=== PATIENT | male | born 1960 | race Caucasian/White ===

== ENCOUNTER 2018-01-19 11:18 | Emergency (ER) | payer BC ==
[~2018-01-19] VITALS: Ht 188 cm; Wt 114.4 kg
--- OUTSIDE RECORDS SUMMARY | ~2018-01-19 | XMS | Clinical Summary ---
Demographics + + + | Address | [address] | | | [place] [address] | + + + | Home Phone | | + + + | Preferred Language | Unknown | + + + | Marital Status | | + + + | Mandaeism Affiliation | Unknown | + + + | Race | White | + + + | Ethnic Group | Not or | + + + Author + + + | Author | [facility] | + + + | Organization | [facility] | + + + | Address | Unknown | + + + | Phone | Unavailable | + + + Support + + +---------+ + | Name | Relationship | Address | Phone | + + +---------+ + | THERESA ADAIR | ECON | Unknown | | + + +---------+ + Care Team Providers + +------+ + | Care Bale Breaker Operator Name | Role | Phone | + +------+ + PP | Unavailable | + +------+ + Source Comments DUANE is fully live on both [facility] and [facility]Patient.[facility] Allergies No Known Allergies Current Medications + + +-------+---------+------+------+-------+ | Prescription | Sig. | Disp. | Refills | Star | End | Statu | | | | | | t | Date | s | | | | | | Date | | | + + +-------+---------+------+------+-------+ | MULTI-VITAMIN OR | None Entered | | | | | Activ | | | | | | | | e | + + +-------+---------+------+------+-------+ | VITAMIN C OR | None Entered | | | | | Activ | | | | | | | | e | + + +-------+---------+------+------+-------+ | cephALEXin | Take 4 capsules by | 4 | 0 | 09/08 | | Activ | | (KEFLEX) 500 mg Oral | mouth now | | | 05/27 | | e | | Capsule | | | | 08 | | | + + +-------+---------+------+------+-------+ Active Problems + + + | Problem | Noted Date | + + + | Malignant neoplasm of skin | | + + + + + | Overview: ICD10 | + + Social History + +-------+ +--------+------+ | Tobacco Use | Types | Packs/Day | Years | Date | | | | | Used | | + +-------+ +--------+------+ | Never Smoker | | | | | + +-------+ +--------+------+ + + + | Sex Assigned at | Date Recorded | | | | + + + | Not on file | | + + + Last Filed Vital Signs + +---------+ + | Vital Sign | Reading | Time Taken | + +---------+ + | Blood Pressure | 120/80 | 09/24/2008 8:01 AM PST | + +---------+ + | Pulse | 72 | 09/24/2008 8:01 AM PST | + +---------+ + | Temperature | - | - | + +---------+ + | Respiratory Rate | 16 | 09/24/2008 8:01 AM PST | + +---------+ + | Oxygen Saturation | - | - | + +---------+ + | Inhaled Oxygen | - | - | | Concentration | | | + +---------+ + | Weight | - | - | + +---------+ + | Height | - | - | + +---------+ + | Body Mass Index | - | - | + +---------+ + Plan of Treatment + + + + + | Health Maintenance | Due Date | Last Done | Comments | + + + + + | INFLUENZA VACCINE | | | | | (FLU SHOT) | 7 | | | + + + + + Results Not on filefrom Last 3 Months"
--- OUTSIDE RECORDS SUMMARY | ~2018-01-19 | XMS | Clinical Summary ---
Demographics + + + | Address | [address] | | | [place] [address] | + + + | Home Phone | | + + + | Preferred Language | Unknown | + + + | Marital Status | | + + + | Advent Affiliation | Unknown | + + + [...] Team Providers + +------+ + | Care Pressure Controller Name | Role | Phone | + +------+ + PP | Unavailable | + +------+ + Source Comments DUANE is fully live on both [facility] and [facility] InPatient.[facility] Allergies No Known Allergies Current [...]
[~2018-01-19 11:18] MED LIST: AMLODIPINE BESYL5 MG PO; ASPIRIN81 MG PO; ATORVASTATIN CA10 MG PO; HYDROCHLOROTHIA25 MG PO; LOSARTAN POTAS100 MG PO; NITROSTAT0.4 MG SL; TOPROL XL50 MG PO
[2018-01-19] MEDS ORDERED: DICLOFENAC SODI75 MG PO (11:26)
[2018-01-19] MEDS ORDERED: METOPROLOL SUC100 MG PO (11:27)
[2018-01-19] MEDS ORDERED: HYDROCHLOROTHIA25 MG PO (11:27)
[2018-01-19] MEDS ORDERED: GLUCOSAMINE HC500 MG PO (11:28)
[2018-01-19] MEDS ORDERED: FISH OIL 1,0001 EAC2 PO (11:28)
[2018-01-19] MEDS ORDERED: VITAMIN B122500 MCG PO (11:30)
[2018-01-19] MEDS ORDERED: VITAMIN C500 M5 PO (11:30)
[2018-01-19] MEDS ORDERED: VITAMIN D35000 UNIT PO (11:30)
--- NOTE | 2018-01-19 18:33 | EKG ---
[facility] [address] [facility] [place] [address] Signed Normal sinus rhythm Normal ECG No previous ECGs available Confirmed by HEMALATHA FRAGOSO MD ([id number]) on 01/19/2018 6:33:18 PM Electronically Signed By: HEMALATHA FRAGOSO MD 01/19/18 1833 PATIENT NAME: ELDA ADAIR Electrocardiogram DATE OF : 60 PHYSICIAN: HEMALATHA FRAGOSO MD REPORT #: [id number] REPORT IS CONFIDENTIAL AND NOT TO BE RELEASED WITHOUT AUTHORIZATION
== END 2018-01-19 15:46 | disposition home or self-care (01) ==
LOC: ED 11:18
DX: R07.2 Precordial pain (principal); I10 Essential (primary) hypertension; E78.5 Hyperlipidemia, unspecified; E78.00 Pure hypercholesterolemia, unspecified; Z88.5 Allergy status to narcotic agent; Z88.8 Allergy status to other drugs, medicaments and biological substances; Z79.899 Other long term (current) drug therapy; Z79.82 Long term (current) use of aspirin
CPT/HCPCS: 71045; 80053; 84484; 85025; 85610; 93005; 93010; 99284

== ENCOUNTER 2019-10-03 06:20 | Day surgery (SDC) | payer BC ==
[~2019-10-03] VITALS: Ht 188 cm; Wt 121.6 kg
[~2019-10-03 06:20] MED LIST changes: +DICLOFENAC SODI75 MG PO; +FISH OIL 1,0001 EAC2 PO; +GLUCOSAMINE HC500 MG PO; +METOPROLOL SUC100 MG PO; +VITAMIN B122500 MCG PO; +VITAMIN C500 M5 PO; +VITAMIN D35000 UNIT PO
--- NOTE | 2019-10-03 08:08 | NUR ---
[facility] SLEEPY WITH NO C/O'S. 0800 PASSING FLATUS. ABD SOFT.
--- NOTE | 2019-10-03 14:19 | NUR ---
PT ALERT, ORIENTED AND SUPPORTED BY PTS' BRIGITTE. PT TOLERATED PREP MUCH BETTER HE SAID THAN THE LAST SCOPE. PT SEEMED READY, HAD FEW QUESTIONS. PT REQUESTED PRAYER, WILL FOLLOW NEEDED
--- NOTE | 2019-10-03 16:58 | OR ---
[facility] [address] [place], [place] [address] Signed DATE OF OPERATION: 10/03/2019 SURGEON: Cy Dobson MD PREOPERATIVE DIAGNOSES: 1. Screening. 2. Diverticulosis. 3. Internal hemorrhoids. 4. External hemorrhoids. POSTOPERATIVE DIAGNOSIS: Onlx-nz-fxqrkklc zimmer-diverticulosis. PROCEDURE: Colonoscopy without biopsy. ESTIMATED BLOOD LOSS: None. INDICATIONS: Mo is a 59-year-old gentleman, who is here for followup screening colonoscopy. He had a previous sigmoidoscopy and barium enema back in 1991. It did show diverticulosis. He had a colonoscopy in 2008 and again, he had left-sided diverticulosis along with internal and external hemorrhoids. He then had hemorrhoid surgery about a month later. 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 He said he has no lower GI complaints. No family history of colon cancer or polyps. In the office, I gave Mo a pamphlet on colonoscopy. We looked at that together along with the risks including, but not limited to gas, bloating, crampy abdominal pain, bleeding, perforation requiring surgery, and missed diagnosis. He also recalls the need for IV conscious sedation. He expressed understanding and wished to proceed. PROCEDURE NOTE: Mo was taken into our endoscopy suite and placed in the left lateral decubitus position. He was given a total of 6 mg of Versed and 125 mcg of fentanyl to cover the case. A digital rectal exam was performed and this was unremarkable. No external hemorrhoids. He had good sphincter tone. Little bit induration to the prostate. The adult colonoscope was introduced and advanced all around into the cecum under direct visualization of camera without difficulty. His prep was good. The scope was slowly withdrawn. We could easily see the appendiceal orifice and the ileocecal valve. We had Electronically Signed By: CY DOBSON MD 10/03/19 1658 PATIENT NAME: MO ADAIR OPERATIVE REPORT DATE OF : 60 REPORT #: [id number] PHYSICIAN: CY DOBSON MD PCP: EMORY TOLLIVER PA-C REPORT IS CONFIDENTIAL AND NOT TO BE RELEASED WITHOUT AUTHORIZATION [facility] [address] [place], [place] [address] Signed taken pictures for photodocumentation. He does have a few diverticula on the right and also on the left. They were [id number]-[id number]-xiyvggvc in size, lhrccic-ch-luudympn in number, and scattered about. The rectum was unremarkable. Upon retroflexion of the scope, he has a little bit of scar tissue from his previous hemorrhoid tissue. I do not see any evidence of any significant internal hemorrhoid tissue. After this, the gas was suctioned out and the colonoscope removed. Mo tolerated the procedure quite well. RECOMMENDATIONS: Mo can return in 10 years for repeat screening colonoscopy. MD RAY Epps/CHARLES /[id number] cc: GERALD [place] MD Copies: CY DOBSON MD ~ Electronically Signed By: CY DOBSON MD 10/03/19 1658 PATIENT NAME: MO ADAIR OPERATIVE REPORT DATE OF : 60 REPORT #: [id number] PHYSICIAN: CY DOBSON MD PCP: EMORY TOLLIVER PA-C REPORT IS CONFIDENTIAL AND NOT TO BE RELEASED WITHOUT AUTHORIZATION
== END 2019-10-03 08:35 | disposition home or self-care (01) ==
LOC: OPS 06:20 → DS 06:20 → OPS 06:45
PROVIDERS: Colon & Rectal Surgery
PROC: 0DJD8ZZ Inspection of Lower Intestinal Tract, Via Natural or Artificial Opening Endoscopic (ICD-10-PCS; principal; 2019-10-03 06:45)
DX: Z12.11 Encounter for screening for malignant neoplasm of colon (principal); K57.30 Diverticulosis of large intestine without perforation or abscess without bleeding; N42.89 Other specified disorders of prostate; I10 Essential (primary) hypertension; E78.5 Hyperlipidemia, unspecified; E55.9 Vitamin D deficiency, unspecified; Z98.890 Other specified postprocedural states; Z88.5 Allergy status to narcotic agent; Z79.82 Long term (current) use of aspirin; Z79.899 Other long term (current) drug therapy
CPT/HCPCS: 99153; G0500; J2250; J3010; J7121